=== PATIENT | male | born 1990 | race Caucasian/White ===

== ENCOUNTER 2022-04-16 16:29 | Emergency (ER) | payer BC, OTHER ==
[2022-04-16 16:51] VITALS: BP 123/85; PULSE 86; RESP 18; TEMP 98.1; BMI 31.6
[2022-04-16] MEDS ORDERED: KETOROLAC TROMETHAMINE 30 MG/1 ML VIAL IM ONE (18:06)
[2022-04-16] MEDS ORDERED: ACETAMINOPHEN 500 MG TABLET (FP) PO ONE (18:06)
[2022-04-16] MEDS ORDERED: diazePAM 5 MG TABLET PO ONE (18:06)
[2022-04-16] MEDS ORDERED: LIDOCAINE 5% TOPICAL PATCH TP ONE (18:07)
[2022-04-16] MEDS ORDERED: LIDOCAINE 5% TOPICAL PATCH ONE (18:10)
[2022-04-16] MEDS ORDERED: diazePAM 5 MG TABLET ONE (18:10)
[2022-04-16] MEDS ORDERED: ACETAMINOPHEN 325 MG TABLET (FP) ONE (18:10)
[2022-04-16] MEDS ORDERED: KETOROLAC TROMETHAMINE 30 MG/1 ML VIAL ONE ×2 (18:10→18:11)
[2022-04-16] MEDS ORDERED: ACETAMINOPHEN 325 MG TABLET (FP) PO ONE (18:18)
[2022-04-16] MEDS ORDERED: LIDOCAINE PATCH REMOVAL MC ONE (22:00)
== END 2022-04-16 20:32 | disposition home or self-care (01) ==
LOC: JERFT 16:29
PROC: 3E023GC Introduction of Other Therapeutic Substance into Muscle, Percutaneous Approach (ICD-10-PCS; principal; 2022-04-16)
DX: M51.27 Other intervertebral disc displacement, lumbosacral region (principal)
CPT/HCPCS: 72131-TC; 99284-25